=== PATIENT | male | born 1995 | race African-American/Black ===

== ENCOUNTER 2016-10-26 21:02 | Emergency (ER) | payer SELFPAY ==
[~2016-10-26] VITALS: Ht 175.3 cm; Wt 118.2 kg
[2016-10-26 21:07] VITALS: BP 124/97; PULSE 85; TEMP 98.3
== END 2016-10-26 22:29 | disposition home or self-care (01) ==
LOC: COL.ER 21:02
DX: S01.112A Laceration without foreign body of left eyelid and periocular area, initial encounter (principal); S50.812A Abrasion of left forearm, initial encounter; S50.811A Abrasion of right forearm, initial encounter; S01.81XA Laceration without foreign body of other part of head, initial encounter; V00.131A Fall from skateboard, initial encounter; Y92.414 Local residential or business street as the place of occurrence of the external cause